=== PATIENT | male | born 1940 | race Caucasian/White ===

== ENCOUNTER → 2016-05-28 | Outpatient (CLI) | payer OTHER, MEDICARE ==
[~2016-05-28] MED LIST: CLX20 PO; FINA5TAB PO; FLAXSEED PO; MULT-506 PO; OMEG10007 PO; OMEP40CA PO; SIMV20TA2 PO; VITA400C15 PO
[2016-05-28 12:31] LABS: ALT/SGPT 32 U/L (12-78); AST/SGOT 14 U/L (15-37); BLOOD UREA NITROGEN 26 mg/dl (7-18); BUN/CREATININE RATIO 21.5 (10-20); CALCIUM 8.9 mg/dl (8.5-10.1); CARBON DIOXIDE 31 mmol/L (21-32); CHLORIDE 105 mmol/L (98-107); GLUCOSE 88 mg/dl (70-99); POTASSIUM 4.4 mmol/L (3.5-5.1); SODIUM 141 mmol/L (136-145)
[2016-05-28 12:34] LABS: ALB/GLOB RATIO 1.1 (0.9-2); ALKALINE PHOSPHATASE 51 U/L (45-117); CHOLESTEROL 183 mg/dl (0-200); CHOLESTEROL/HDL RATIO 2.5; HDL CHOLESTEROL 73 mg/dl; LDL CHOLESTEROL CALCULATED 92 mg/dl; TRIGLYCERIDES 91 mg/dl (0-150); VERY LOW DENSITY LIPOPROT CALC 18 mg/dl
== END | disposition home or self-care (01) ==
LOC: C.LABPVFM 09:05
PROVIDERS: ATTEND Family Medicine
DX: E78.2 Mixed hyperlipidemia (principal)

== ENCOUNTER → 2017-02-15 | Outpatient (CLI) | payer OTHER, MEDICARE ==
--- NOTE | 2017-02-15 13:07 | DIAGNOSTIC IMAGING REPORT ---
L WRIST MIN 3 VIEWS ROUTINE, L HAND MIN 3 VIEWS ROUTINE, L FOREARM 2 VIEWS ROUTINE HISTORY: 76 years-old Male PAIN WRIST JOINT L acute left-sided wrist pain status post fall COMPARISON: None available TECHNIQUE: 3 views of the left wrist, 3 views of the left hand and 2 views of the left forearm FINDINGS: FOREARM: Distal radial fracture noted. Proximal radius and ulna appear intact. Degenerative spurring of the olecranon. Bones are mildly demineralized. WRIST: Acute comminuted fracture of the distal radial metadiaphysis is noted with fracture lines extending into both the radiocarpal and distal radioulnar joints. There is slight impaction approximate 5 mm and cortical buckling and slight displacement dorsally of 5 mm. 3 mm separation of intra-articular fracture fragments involving the radiocarpal joint. Moderate soft tissue swelling. No definite carpal bone fracture or dislocation. Transverse fracture involving the base of the ulnar styloid is noted with distal fracture fragment displaced distally 2 mm. 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 HAND: Moderate dorsal hand soft tissue swelling. Mild interphalangeal degenerative changes. No opaque foreign body. IMPRESSION: 1. Acute comminuted mildly displaced and slightly impacted intra-articular fracture of the distal radius with fracture extending into the radiocarpal and distal radioulnar joints. 2. Mildly displaced fracture of the ulnar styloid. 3. Moderate soft tissue swelling of the hand and wrist. The above report was generated using voice recognition software. It may contain grammatical, syntax or spelling errors. Electronically signed by: Yared Connolly M.D. 02/15/2017 1:06 PM Dictated Date/Time: 02/15/2017 1:02 PM
== END | disposition home or self-care (01) ==
LOC: C.RADPV 11:53
PROVIDERS: ATTEND Family Medicine
DX: S52.512A Displaced fracture of left radial styloid process, initial encounter for closed fracture (principal); X58.XXXA Exposure to other specified factors, initial encounter

== ENCOUNTER → 2017-04-29 | Outpatient (CLI) | payer OTHER, MEDICARE ==
[2017-04-29 13:25] LABS: ALBUMIN 3.7 gm/dl (3.4-5.0); ALT/SGPT 27 U/L (12-78); AST/SGOT 17 U/L (15-37); BLOOD UREA NITROGEN 26 mg/dl (7-18); CALCIUM 8.7 mg/dl (8.5-10.1); CARBON DIOXIDE 30 mmol/L (21-32); CREATININE 1.52 mg/dl (0.60-1.40); GLUCOSE 90 mg/dl (70-99); POTASSIUM 4.5 mmol/L (3.5-5.1); SODIUM 135 mmol/L (136-145)
[2017-04-29 13:28] LABS: ALKALINE PHOSPHATASE 51 U/L (45-117); CHOLESTEROL 184 mg/dl (0-200); LDL CHOLESTEROL CALCULATED 90 mg/dl; TOTAL PROTEIN 7.2 gm/dl (6.4-8.2)
== END | disposition home or self-care (01) ==
LOC: C.LABPVFM 09:06
PROVIDERS: ATTEND Family Medicine
DX: E78.2 Mixed hyperlipidemia (principal)

== ENCOUNTER → 2017-10-28 | Outpatient (CLI) | payer OTHER, MEDICARE ==
[2017-10-28 12:58] LABS: HEMOGLOBIN 13.4 g/dL (14.0-18.0); MEAN CELL VOLUME 90.5 fL (80-100); MEAN CORPUSCULAR HEMOGLOBIN 31.1 pg (25-34); MEAN CORPUSCULAR HGB CONC 34.4 g/dl (32-36); MEAN PLATELET VOLUME 11.1 fL (7.4-10.4); PLATELET COUNT 265 K/uL (130-400); RED CELL DISTRIBUTION WIDTH CV 13.6 % (11.5-14.5); RED CELL DISTRIBUTION WIDTH SD 45.1 fL (36.4-46.3); WHITE BLOOD COUNT 6.61 K/uL (4.8-10.8)
[2017-10-28 13:19] LABS: ALBUMIN 3.6 gm/dl (3.4-5.0); ALKALINE PHOSPHATASE 57 U/L (45-117); ALT/SGPT 31 U/L (12-78); AST/SGOT 23 U/L (15-37); BLOOD UREA NITROGEN 23 mg/dl (7-18); CALCIUM 8.4 mg/dl (8.5-10.1); CARBON DIOXIDE 23 mmol/L (21-32); CHOLESTEROL 160 mg/dl (0-200); CREATININE 1.43 mg/dl (0.60-1.40); GLUCOSE 86 mg/dl (70-99); LDL CHOLESTEROL CALCULATED 78 mg/dl; POTASSIUM 4.1 mmol/L (3.5-5.1); SODIUM 135 mmol/L (136-145); TOTAL PROTEIN 7.1 gm/dl (6.4-8.2)
== END | disposition home or self-care (01) ==
LOC: C.LABPVFM 08:21
PROVIDERS: ATTEND Family Medicine
DX: C61 Malignant neoplasm of prostate (principal)